=== PATIENT | female | born 1935 | race Caucasian/White ===

== ENCOUNTER 2018-07-21 13:26 | Outpatient (CLI) | payer MEDICARE, OTHER ==
--- NOTE | 2018-07-21 14:29 | RAD ---
RIGHT KNEE 4 VIEWS: HISTORY: Right knee pain. FINDINGS: Mild tricompartmental joint space narrowing and osteophytosis. No acute fracture, dislocation, or ag gressive osseous erosions. Fluid distends the suprapatellar bursa on the lateral view. Calcificatio n over the popliteal artery. IMPRESSION: 1. Mild osteoarthritic changes with small joint effusion. 2. Atherosclerosis. POS: [facility]
--- NOTE | 2018-07-21 14:32 | RAD ---
FOUR VIEWS LEFT KNEE: HISTORY: Chronic knee pain for 3 years. FINDINGS: AP, lateral, and both oblique views left knee obtained. Four views left knee demonstrate some mild meniscal calcifications. The left knee demonstrates no ev idence of acute fractures, subluxations, or bony lesions. IMPRESSION: Left knee meniscal calcifications; otherwise, unremarkable. POS: [facility]
== END 2018-07-21 13:27 | disposition home or self-care (01) ==
LOC: BICRAD 13:26
DX: M25.561 Pain in right knee (principal); M25.562 Pain in left knee; M25.862 Other specified joint disorders, left knee; M17.11 Unilateral primary osteoarthritis, right knee; M25.461 Effusion, right knee; I70.90 Unspecified atherosclerosis

== ENCOUNTER 2018-08-22 14:24 | Outpatient (CLI) | payer MEDICARE, OTHER ==
--- NOTE | 2018-08-22 17:00 | RAD ---
THREE VIEWS LEFT SHOULDER: Date: 08-22-18 History: Left shoulder pain. History of multiple myeloma. FINDINGS: There is left acromioclavicular joint osteoarthritis as well as left glenohumeral osteoarthropathy. N o fracture or dislocation is seen. No obvious lytic or sclerotic osseous lesions are identified. Vasc ular calcifications are seen in the thoracic aorta. IMPRESSION: 1. Left glenohumeral osteoarthropathy and left acromioclavicular joint osteoarthritis. 2. No acute osseous abnormality. POS: [facility]
--- NOTE | 2018-08-22 17:14 | RAD ---
OSSEOUS SURVEY: INDICATIONS: History of multiple myeloma. COMPARISON: Chest radiograph dated 10/04/2015. FINDINGS: There is advanced disk degenerative disease involving the cervical spine at C3-C4, C4-C5, and C6-C7. There is straightening of the normal cervical lordosis. There is a wedge compression abnormality at T8, which is stable. There is mild thoracolumbar scoliosis. There is diffuse osteopenia. There is grade 1 anterolisthesis of L4 on L5 that is stable to a comparison lumbar spine radiograph dated . A small pessary is seen within the lower central pelvis. No suspicious osteolytic or osteo blastic lesion is identified. 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 There is advanced osteoa rthritic change at the radial carpal joints bilaterally with chondrocalcinosis. There are scattered subchondral cyst-like abnormalities. No definite erosive change is seen elsewhere. There is degener ative change at the symphysis pubis. No acute fracture is evident. There are mild scattered vascula r calcifications. IMPRESSION: 1. No suspicious osteolytic or osteoblastic lesion. 2. Stable T8 wedge compression abnormality. 3. Stable grade 1 anterolisthesis of L4 and L5. 4. Moderate multilevel spondylosis of the spine. 5. Advanced radial carpal osteoarthritic change with chondrocalcinosis and scattered subchondral cys t-like abnormalities, suspicious for entities such as calcium pyrophosphate deposition disease. POS: [facility]
== END 2018-08-22 14:25 | disposition home or self-care (01) ==
LOC: BICRAD 14:24
PROVIDERS: ATTEND Internal Medicine Hematology & Oncology
DX: D47.2 Monoclonal gammopathy (principal); M25.512 Pain in left shoulder; M43.16 Spondylolisthesis, lumbar region; M47.816 Spondylosis without myelopathy or radiculopathy, lumbar region; M19.012 Primary osteoarthritis, left shoulder
CPT/HCPCS: 77075

== ENCOUNTER 2018-09-05 12:55 | Outpatient (CLI) | payer MEDICARE, OTHER ==
--- NOTE | 2018-09-05 15:11 | ULT ---
COMPLETE BILATERAL RENAL ULTRASOUND: HISTORY: Renal failure, R18.3. FINDINGS: Both kidneys are somewhat small. The right kidney measures 8 x 3.1 x 4.4 cm. The left kidney measur es 9.3 x 4.9 x 4.1 cm. There is a 1.8 cm left renal cyst. No hydronephrosis or perinephric process. The urinary bladder appears unremarkable. IMPRESSION: Unremarkable bilateral renal ultrasound. Both kidneys are borderline small. No hydronephrosis. POS: [facility]
== END 2018-09-05 12:56 | disposition home or self-care (01) ==
LOC: BICULT 12:55
PROVIDERS: ATTEND Internal Medicine Nephrology
DX: N18.3 Chronic kidney disease, stage 3 (moderate) (principal); N27.1 Small kidney, bilateral
CPT/HCPCS: 76770

== ENCOUNTER 2018-09-15 13:19 | Outpatient (CLI) | payer MEDICARE, OTHER ==
--- NOTE | 2018-09-15 15:18 | RAD ---
FOUR VIEWS OF THE LUMBOSACRAL SPINE: COMPARISON: None. HISTORY: Low back pain. FINDINGS: AP, lateral, and flexion/extension views of the lumbosacral spine were performed. There is grade I a nterolisthesis of L4 on L5 and very subtle grade I anterolisthesis of L5 on S1. There is moderate po sterior facet arthrosis in the lower lumbosacral spine. The vertebral bodies demonstrate normal heig ht without fracture. No change in alignment is seen with flexion and extension. Vascular calcifications are seen in the aorta. IMPRESSION: Degenerative changes of the lumbar spine with unchanged alignment with bending. POS: [facility]
== END 2018-09-15 13:20 | disposition home or self-care (01) ==
LOC: BICRAD 13:19
DX: M54.5 Low back pain (principal); M47.816 Spondylosis without myelopathy or radiculopathy, lumbar region
CPT/HCPCS: 72110